=== PATIENT | male | born 1995 | race Two or more races ===

== ENCOUNTER 2018-05-03 23:06 | Emergency (ER) | payer SELFPAY | END 2018-05-04 00:08 | disposition home or self-care (01) | LOC: ER 23:06 | DX: S61.213A Laceration without foreign body of left middle finger without damage to nail, initial encounter (principal); W27.8XXA Contact with other nonpowered hand tool, initial encounter; Y93.89 Activity, other specified; Y99.8 Other external cause status; Y92.89 Other specified places as the place of occurrence of the external cause | CPT/HCPCS: 99283 ==